=== PATIENT | female | born 1975 | race Caucasian/White ===

== ENCOUNTER 2016-11-19 10:56 | Observation (INO) | payer OTHER ==
[2016-11-19] MEDS ORDERED: ASPIRIN 81 MG TABLET, CHEWABLE PO ONE (11:26)
--- NOTE | 2016-11-19 11:26 | ER Document Report ---
ED Medical Screen (RME) - General Chief Complaint: Chest Tightness Stated Complaint: CHEST PAIN/BP PROBLEMS Time Seen by Provider: 11/19/16 11:18 Notes: Patient is a 41-year-old female, past medical history migraines (on propranolol) , hypertension, hyperlipidemia, depression, with feeling like her heart is racing since 8 am today. She has not missed any of her propranolol doses. She takes OCPs. She is also feeling a substernal chest tightness that started around the same time. Denies leg swelling, hemoptysis, shortness of breath, back pain, recent long travel or smoking. PE: Tachycardic, no respiratory distress, no leg swelling I have greeted and performed a rapid initial assessment of this patient. A comprehensive ED assessment and evaluation of the patient, analysis of test results and completion of the medical decision making process will be conducted by additional ED providers. TRAVEL OUTSIDE OF THE [place] IN LAST 30 DAYS: No - Related Data Allergies/Adverse Reactions: No Known Allergies Allergy (Verified 11/19/16 11:12) Past Medical History Neurological Medical History: Reports: Hx Migraine Renal/ Medical History: Denies: Hx Peritoneal Dialysis Physical Exam - Vital signs Vitals: Temp Pulse Resp BP Pulse Ox 97.7 F 134 H 20 149/97 H 100 11/19/16 11:12 11/19/16 11:12 11/19/16 11:12 11/19/16 11:12 11/19/16 11:12 Course - Vital Signs Vital signs: Temp Pulse Resp BP Pulse Ox 97.7 F 134 H 20 149/97 H 100 11/19/16 11:12 11/19/16 11:12 11/19/16 11:12 11/19/16 11:12 11/19/16 11:12
[2016-11-19 11:56] LABS: ABSOLUTE BASOPHILS # (AUTO) 0.1 10^3/uL (0.0-0.2); ABSOLUTE LYMPHOCYTES (AUTO) 2.2 10^3/uL (0.5-4.7); ABSOLUTE MONOCYTES (AUTO) 0.7 10^3/uL (0.1-1.4); ABSOLUTE NEUT (AUTO) 7.3 10^3/uL (1.7-8.2); BASOPHILS % (AUTO) 0.8 % (0-2); EOSINOPHILS % (AUTO) 0.5 % (0-6); HEMATOCRIT 44.5 % (36.0-47.0); HEMOGLOBIN 14.8 g/dL (12.0-15.5); HGB HCT DIFFERENCE -0.1; LYMPHOCYTES % (AUTO) 21.1 % (13-45); MEAN CORPUSCULAR HGB CONC 33.2 g/dL (32.0-36.0); MEAN CORPUSCULAR VOLUME 90 fl (80-97); MONOCYTES % (AUTO) 6.7 % (3-13); RED BLOOD COUNT 4.93 10^6/uL (3.72-5.28); SEGMENTED NEUTROPHILS % (AUTO) 70.9 % (42-78); WHITE BLOOD COUNT 10.3 10^3/uL (4.0-10.5)
[2016-11-19] MEDS: NITROGLYCERIN 0.4 MG/TAB 25 TAB/BOTTLE SL PRN ×2 (12:09→12:16)
[2016-11-19 12:16] LABS: ALANINE AMINOTRANSFERASE 32 U/L (9-52); ALBUMIN 4.3 g/dL (3.5-5.0); ALKALINE PHOSPHATASE 66 U/L (38-126); ANION GAP 13 (5-19); ASPARTATE AMINO TRANSFERASE 18 U/L (14-36); BILIRUBIN,DIRECT 0.2 mg/dL (0.0-0.4); BILIRUBIN,TOTAL 0.8 mg/dL (0.2-1.3); BLOOD UREA NITROGEN 17 mg/dL (7-20); CALCIUM 10.2 mg/dL (8.4-10.2); CARBON DIOXIDE 25 mmol/L (22-30); CHLORIDE 101 mmol/L (98-107); CREATINE KINASE 102 U/L (30-135); CREATININE RESULT 0.88 mg/dL (0.52-1.25); GLUCOSE 88 mg/dL (75-110); POTASSIUM 4.1 mmol/L (3.6-5.0); SODIUM 138.9 mmol/L (137-145); TOTAL PROTEIN 7.6 g/dL (6.3-8.2)
[2016-11-19 12:31] LABS: TROPONIN I < 0.012 ng/mL
--- NOTE | 2016-11-19 12:49 | EKG REPORT ---
SEVERITY:- ABNORMAL ECG - SINUS TACHYCARDIA PROBABLE INFERIOR INFARCT, AGE INDETERMINATE CONSIDER ANTEROSEPTAL INFARCT : Confirmed by: Dontrell Mauricio MD 19-Nov-2016 12:48:10
--- NOTE | 2016-11-19 12:58 | ER Document Report ---
ED General - General Chief Complaint: Chest Tightness Stated Complaint: CHEST PAIN/BP PROBLEMS Time Seen by Provider: 11/19/16 11:18 Mode of Arrival: Ambulatory Information source: Patient Notes: 41-year-old female presents with complaints of chest tightness that started around 9 AM this morning. She denies any fevers or chills admits shortness breath. Patient's mother had a history of pulmonary emboli she is on control herself. Patient is noted to be tachycardic. Patient to history of intermittent chest pain states she had one similar episode when she was taken off propanolol for her migraine headache and then began to have similar chest pain patient which is currently on no new medications TRAVEL OUTSIDE OF THE [place] IN LAST 30 DAYS: No - HPI Onset: Just prior to arrival Onset/Duration: Sudden Quality of pain: Pressure Severity: Mild Pain Level: 1 Associated symptoms: Chest pain Exacerbated by: Denies Relieved by: Denies Similar symptoms previously: Yes Recently seen / treated by doctor: No - Related Data Allergies/Adverse Reactions: No Known Allergies Allergy (Verified 11/19/16 11:12) Past Medical History - Social History Smoking Status: Never Smoker Cigarette use (# per day): No Chew tobacco use (# tins/day): No Smoking Education Provided: No Frequency of alcohol use: None Drug Abuse: None Family History: Reviewed & Not Pertinent Patient has suicidal ideation: No Patient has homicidal ideation: No Neurological Medical History: Reports: Hx Migraine Renal/ Medical History: Denies: Hx Peritoneal Dialysis Review of Systems - Review of Systems Notes: REVIEW OF SYSTEMS: CONSTITUTIONAL : Denies fever, chills, or sweats. Denies recent illness. EENT: Denies eye, ear, throat, or mouth pain or symptoms. Denies nasal or sinus congestion or discharge. Denies throat, tongue, or mouth swelling or difficulty swallowing. CARDIOVASCULAR: admits to chest pain RESPIRATORY: admits to sob GASTROINTESTINAL: Denies abdominal pain or distention. Denies nausea, vomiting , or diarrhea. Denies blood in vomitus, stools, or per rectum. Denies black, tarry stools. Denies constipation. GENITOURINARY: Denies difficulty urinating, painful urination, burning, frequency, blood in urine, or discharge. FEMALE GENITOURINARY: Denies vaginal bleeding, heavy or abnormal periods, irregular periods. Denies vaginal discharge or odor. MUSCULOSKELETAL: Denies back or neck pain or stiffness. Denies joint pain or swelling. SKIN: Denies rash, lesions or sores. HEMATOLOGIC : Denies easy bruising or bleeding. LYMPHATIC: Denies swollen, enlarged glands. NEUROLOGICAL: Denies confusion or altered mental status. Denies passing out or loss of consciousness. Denies dizziness or lightheadedness. Denies headache. Denies weakness or paralysis or loss of use of either side. Denies problems with gait or speech. Denies sensory loss, numbness, or tingling. Denies seizures. PSYCHIATRIC: Denies anxiety or stress. Denies depression, suicidal ideation, or homicidal ideation. ALL OTHER SYSTEMS REVIEWED AND NEGATIVE. PHYSICAL EXAMINATION: GENERAL: Well-appearing, well-nourished and in no acute distress. HEAD: Atraumatic, normocephalic. EYES: Pupils equal round and reactive to light, extraocular movements intact, conjunctiva are normal. ENT: Nares patent, oropharynx clear without exudates. Moist mucous membranes. NECK: Normal range of motion, supple without lymphadenopathy LUNGS: Breath sounds clear to auscultation bilaterally and equal. No wheezes rales or rhonchi. HEART: tachycardic ABDOMEN: Soft, nontender, nondistended abdomen. No guarding, no rebound. No masses appreciated. Female : deferred Musculoskeletal: Normal range of motion, no pitting or edema. No cyanosis. NEUROLOGICAL: Cranial nerves grossly intact. Normal speech, normal gait. Normal sensory, motor exams PSYCH: Normal mood, normal affect. SKIN: Warm, Dry, normal turgor, no rashes or lesions noted. Dictation was performed using [employer] voice recognition software Physical Exam - Vital signs Vitals: Temp Pulse Resp BP Pulse Ox 97.7 F 134 H 20 149/97 H 100 11/19/16 11:12 11/19/16 11:12 11/19/16 11:12 11/19/16 11:12 11/19/16 11:12 Course - Re-evaluation Re-evalutation: 11/19/16 14:49 CTA of chest was performed, no pulmonary emboli is noted. Patient will be admitted for ACS rule out given history of hypertension hyperlipidemia - Vital Signs Vital signs: Temp Pulse Resp BP Pulse Ox 97.7 F 134 H 16 149/97 H 100 11/19/16 11:12 11/19/16 11:12 11/19/16 12:26 11/19/16 11:12 11/19/16 11:12 - Laboratory Result Diagrams: 11/19/16 11:36 11/19/16 11:36 Laboratory results interpreted by me: 11/19/16 11/19/16 11:36 13:30 D-Dimer 0.70 H Urine Blood MODERATE H Ur Leukocyte Esterase LARGE H - Diagnostic Test Radiology reviewed: Image reviewed, Reports reviewed - EKG Interpretation by Me EKG shows normal: Sinus rhythm, [place], Intervals, QRS Complexes Discharge - Discharge Clinical Impression: Tachycardia Chest pain Qualifiers: Chest pain type: unspecified Qualified Code(s): R07.9 - Chest pain, unspecified Condition: Stable Disposition: ADMITTED OBSERVATION Admitting Provider: Hospitalist Unit Admitted: Telemetry
--- NOTE | 2016-11-19 13:24 | RADIOLOGY REPORT (SQ) ---
EXAM DESCRIPTION: CTA CHEST COMPLETED DATE/TIME: 11/19/2016 12:59 pm REASON FOR STUDY: chest pain ,tachycardia COMPARISON: None. TECHNIQUE: CT scan of the chest performed using helical scanning technique with dynamic intravenous contrast injection. Images reviewed with lung, soft tissue and bone windows. Reconstructed coronal and sagittal MPR images reviewed. Additional 3 dimensional post-processing performed to develop Maximal Intensity Projection images ([place] P). All images stored on PACS. All CT scanners at this facility use dose modulation, iterative reconstruction, and/or weight based d osing when appropriate to reduce radiation dose to as low as reasonably achievable (ALARA). [facility]: Dose Right [facility]: CareDose [facility]: Dose Right [facility]: Teradose 4D [facility]: KiteDesk CONTRAST TYPE AND DOSE: contrast/concentration: Isovue 370.00 mg/ml; Total Contrast Delivered: 72.0 ml; Total Saline Delivered: 100.0 ml RENAL FUNCTION: GFR > 60. RADIATION DOSE: Up-to-date CT equipment and radiation dose reduction techniques were employed. CTDIv ol: 14.8 - 16.5 mGy. DLP: 492 mGy-cm. . LIMITATIONS: None. FINDINGS: LUNGS AND PLEURA: No masses, infiltrates, pneumothorax. No pleural effusions, calcificati ons. AORTA AND GREAT VESSELS: No aneurysm or dissection. HEART: No pericardial effusion. PULMONARY ARTERIES: No emboli visualized in the main pulmonary arteries or the segmental branches. HILAR AND MEDIASTINAL STRUCTURES: No identified masses or abnormal nodes. HARDWARE: None in the chest. UPPER ABDOMEN: No significant findings. Limited exam. THYROID AND OTHER SOFT TISSUES: Subcentimeter nodule right thyroid. BONES: No acute or significant finding. 3D MIPS: Confirm above findings. OTHER: No other significant finding. IMPRESSION: No evidence of pulmonary embolus. TECHNICAL DOCUMENTATION: JOB ID: [id number] Quality ID # [id number]: Final reports with documentation of one or more dose reduction techniques (e.g., Au tomated exposure control, adjustment of the mA and/or kV according to patient size, use of iterative reconstruction technique) 2010 [employer]- All Rights Reserved
[2016-11-19 14:40] LABS: APPEARANCE,URINE SLIGHTLY-CLOUDY; BILIRUBIN,URINE NEGATIVE (NEGATIVE); GLUCOSE, URINE NEGATIVE (NEGATIVE); KETONES,URINE NEGATIVE (NEGATIVE); LEUKOCYTE ESTERASE,URINE LARGE (NEGATIVE); NITRITE,URINE NEGATIVE (NEGATIVE); PROTEIN,URINE NEGATIVE (NEGATIVE); URINE SPECIFIC GRAVITY 1.009; UROBILINOGEN,URINE NEGATIVE mg/dL (<2.0)
[2016-11-19] MEDS ORDERED: ENOXAPARIN SODIUM INJ 40 MG/0.4 ML DISP.SYRIN SUBCUT ONE (15:30)
[2016-11-19] MEDS: LANSOPRAZOLE 30 MG TAB.RAP.DR PO SCH (18:32)
[2016-11-19] MEDS ORDERED: FLUOXETINE HCL 20 MG/5 ML UDCUP PO ONE (19:30)
[2016-11-19] MEDS: PROPRANOLOL HCL 40 MG TABLET PO SCH (21:33)
[2016-11-19] MEDS ORDERED: PROPRANOLOL HCL 40 MG TABLET PO SCH (22:00)
[2016-11-20] MEDS: LANSOPRAZOLE 30 MG TAB.RAP.DR PO SCH (05:50)
[2016-11-20 06:17] LABS: CHOLESTEROL 172.05 mg/dL (0-200); Direct HDL 36 mg/dL (>40); TRIGLYCERIDES 162 mg/dL (<150)
[2016-11-20 06:28] LABS: DIRECT LDL 120 mg/dL (<100)
[2016-11-20 06:32] LABS: VLDL CHOLESTEROL 32.4 mg/dL (10-31)
[2016-11-20] MEDS ORDERED: LOSARTAN POTASSIUM 50 MG TABLET PO SCH (10:00)
[2016-11-20] MEDS ORDERED: DULOXETINE HCL 30 MG CAPSULE.DR PO SCH (10:00)
[2016-11-20] MEDS ORDERED: HYDROCHLOROTHIAZIDE 12.5 MG CAPSULE PO SCH (10:00)
[2016-11-20] MEDS ORDERED: LOSARTAN PO SCH (10:00)
[2016-11-20] MEDS ORDERED: ASPIRIN 81 MG TABLET, CHEWABLE PO SCH (10:00)
[2016-11-20] MEDS ORDERED: ENOXAPARIN SODIUM INJ 40 MG/0.4 ML DISP.SYRIN SUBCUT SCH (10:00)
[2016-11-20] MEDS ORDERED: HYDROCHLOROTHIAZIDE PO SCH (10:00)
[2016-11-20] MEDS ORDERED: ATORVASTATIN CALCIUM 20 MG TABLET PO SCH (10:00)
[2016-11-20] MEDS: PROPRANOLOL HCL 40 MG TABLET PO SCH (10:40)
[2016-11-20] MEDS ORDERED: METOPROLOL SUCCINATE 25 MG TAB.SR.24H PO ONE (11:30)
[2016-11-20 14:08] VITALS: BP 116/67
--- NOTE | 2016-11-20 14:20 | PDOC DISCHARGE SUMMARY ---
General - Admit/Disc Date/PCP Admission Date/Primary Care Provider: 11/19/16 14:32 GRISELDA UPTONFATUMA Discharge Date: 11/20/16 - Discharge Diagnosis (1) Chest pain Is this a current diagnosis for this admission?: YesSummary: Patient ruled out for acute coronary syndrome, most likely GI origin. She will follow up with cardiology for event recorder and possible stress test (2) Tachycardia Is this a current diagnosis for this admission?: Yes (3) Essential hypertension Is this a current diagnosis for this admission?: YesSummary: Continue current medications she is normotensive (4) Depression Is this a current diagnosis for this admission?: YesSummary: Continue home medications (5) Migraine Is this a current diagnosis for this admission?: Yes - Additional Information Resuscitation Status: Full Code Discharge Diet: Regular Discharge Activity: Activity As Tolerated, Balance Activity w/Rest Home Medications: Atorvastatin Calcium [Lipitor 20 mg Tablet] 20 mg PO DAILY 11/19/16 Duloxetine HCl 30 mg PO DAILY 11/19/16 Fluoxetine HCl [Prozac] 10 mg PO QPM 11/19/16 Levonorgestrel-Ethin Estradiol [Jolessa 0.15 mg-0.03 mg Tablet] 1 tab PO QPM 08/03 Losartan/Hydrochlorothiazide [Hyzaar 100-25 Tablet] 50 mg PO DAILY 11/19/16 Propranolol HCl [Inderal LA] 80 mg PO QPM 11/19/16 History of Present Illness Patient complains of: Palpitations and chest pain , at rest for several hours History of Present Illness: 41-year-old female presents with complaints of chest tightness that started around 9 AM this morning. She denies any fevers or chills admits shortness breath. Patient's mother had a history of pulmonary emboli she is on control herself. Patient is noted to be tachycardic. Patient to history of intermittent chest pain states she had one similar episode when she was taken off propanolol for her migraine headache and then began to have similar chest pain patient which is currently on no new medications Hospital Course Hospital Course: Patient was admitted to the hospitalist service on tele. CTA of the chest revealed no abnormalities. Serial troponins were done which were all less than 0.012. She had no further episodes of chest pain. She has remained pain free. She had mild sinus tachycardia but otherwise no arryhtmias. She can be discharged home today and follow up with cardiology for a 7 day event recorder, possible stress test if they feel indicated Physical Exam Vital Signs: Temp Pulse Resp BP Pulse Ox 98.1 F 90 17 116/67 98 11/20/16 13:58 11/20/16 13:58 11/20/16 13:58 11/20/16 13:58 11/20/16 13:58 Intake & Output 11/19/16 11/20/16 11/21/16 06:59 06:59 06:59 Intake Total 310 360 Balance 310 360 Weight 80 kg General appearance: PRESENT: no acute distress, well-developed, well-nourished Head exam: PRESENT: atraumatic, normocephalic Eye exam: PRESENT: conjunctiva pink, EOMI, PERRLA. ABSENT: scleral icterus Ear exam: PRESENT: normal external ear exam Mouth exam: PRESENT: moist, tongue midline Neck exam: ABSENT: carotid bruit, JVD, lymphadenopathy, thyromegaly Respiratory exam: PRESENT: clear to auscultation reagan. ABSENT: rales, rhonchi, wheezes Cardiovascular exam: PRESENT: RRR. ABSENT: diastolic murmur, rubs, systolic murmur Pulses: PRESENT: normal dorsalis pedis pul Vascular exam: PRESENT: normal capillary refill GI/Abdominal exam: PRESENT: normal bowel sounds, soft. ABSENT: distended, guarding, mass, organolmegaly, rebound, tenderness Rectal exam: PRESENT: deferred Extremities exam: PRESENT: full ROM. ABSENT: calf tenderness, clubbing, pedal edema Neurological exam: PRESENT: alert, awake, oriented to person, oriented to place , oriented to time, oriented to situation, CN II-XII grossly intact. ABSENT: motor sensory deficit Psychiatric exam: PRESENT: appropriate affect, normal mood. ABSENT: homicidal ideation, suicidal ideation Skin exam: PRESENT: dry, intact, warm. ABSENT: cyanosis, rash Results Laboratory Results: 11/20/16 05:55 Triglycerides 162 H Cholesterol 172.05 LDL Cholesterol Direct 120 H VLDL Cholesterol 32.4 H HDL Cholesterol 36 L 11/19/16 11/20/16 18:15 00:53 Troponin I < 0.012 < 0.012 Impressions: Chest/Abdomen CTA 11/19/16 12:32 IMPRESSION: No evidence of pulmonary embolus. Qualifiers PATEINT BEING DISCHARGED WITH ANY OF THE FOLLOWING DIAGNOSIS?: No Plan Discharge Plan: Home with family Time Spent: Less than 30 Minutes
[2016-11-20] MEDS ORDERED: (PENDING PHARMACY ID) (Propranolol Hcl [Inderal La] 80 MG) PO SCH (18:00)
[2016-11-20] MEDS ORDERED: FLUOXETINE HCL 20 MG/5 ML UDCUP PO SCH (18:00)
--- NOTE | 2016-11-20 20:31 | EKG REPORT ---
SEVERITY:- BORDERLINE ECG - SINUS RHYTHM BORDERLINE R WAVE PROGRESSION, ANTERIOR LEADS : Confirmed by: Dontrell Mauricio MD 20-Nov-2016 20:30:22
--- NOTE | 2016-11-26 10:39 | HISTORY AND PHYSICAL E ---
History and Physical NAME: MARV LEAL : 1975 AGE: 41Y ADMITTED: 11/19/2016 ROOM: 531 PRIMARY CARE PROVIDER: Anastasia Nava NP CHIEF COMPLAINT: Chest heaviness. HISTORY OF PRESENT ILLNESS: The patient is a 41-year-old female with a past medical history of migraine headaches. The patient presented to emergency department with a chief complaint of chest discomfort. According to the patient around noon she was working and developed a sensation that her heart was racing and chest heaviness. The patient apparently had an episode over a year ago with this. The patient was actually scheduled for an outpatient stress test; however, during the stress test prior to the patient being on the treadmill her heart rate went to 170. It was felt by the vp that this was due to the patient stopping her beta-ronnie, for which she takes for her migraines for the stress test. The patient resumed her medication and her heart rate improved; however, the patient never went through with the stress test because of this. The patient denies any increased stressors. The patient denies any dizziness, loss of consciousness, no fevers, chills, no cough or sputum production. Upon examination, the patient was mildly tachycardic with a heart rate of 105 and the patient was referred to the hospitalist for observation and management. PAST MEDICAL HISTORY: 1. Migraine headaches. 2. Hyperlipidemia. 3. Hypertension. PAST SURGICAL HISTORY: Negative. ALLERGIES: No known drug allergies. HOME MEDICATIONS: 1. Ropinirole 80 mg p.o. every hour of sleep. 2. Hyzaar 100/25 50 mg p.o. daily. 3. Jolessa 1 tablet p.o. q.p.m. 4. Prozac 10 mg p.o. q.p.m. 5. Cymbalta 30 mg p.o. daily. 6. Lipitor 20 mg p.o. daily. SOCIAL HISTORY: The patient currently resides at home. She is . Her surrogate decision maker is her spouse. The patient is employed full-time as an [employer]. She denies any tobacco use. No history of alcohol or illicit drug use. FAMILY MEDICAL HISTORY: Positive for coronary artery disease in her grandfather, hypertension in her parents. The patient's child is healthy. The patient has a sister with thyroid issues. DICTATING PHYSICIAN: KATHARINE BARBOZA NP [id number] PHY#: [id number] ID: [id number] JOB#: [id number] ACCT: [id number] cc:KATHARINE BARBOZA NP VIDHYA GARCIA > REVIEW OF SYSTEMS: CONSTITUTIONAL: The patient denies any fevers, chills, weakness. No loss of appetite. No dizziness. INTEGUMENTARY: The patient denies any diaphoresis, rash, bruising, itching. HEENT: Denies any vision changes, hearing loss, nasal drainage, sore throat, headache. CARDIOVASCULAR: Denies any edema. Positive for chest pain. Intermittent palpitations. RESPIRATORY: Denies any cough, sputum production, or hemoptysis. No shortness of breath. GASTROINTESTINAL: Denies any nausea, vomiting, diarrhea, abdominal pain, bloating, hematemesis, melena, constipation, melena, hematochezia, mid-epigastric pain. GENITOURINARY: Denies any hematuria, pyuria, or dysuria. MUSCULOSKELETAL: Denies any joint pains. NEUROLOGICAL: Denies any seizures, tremors, loss of consciousness. HEMATOLOGICAL: Denies any kp bleeding or easy bruising. ENDOCRINE: Denies any recent weight changes. PSYCHIATRIC: Denies suicidal or homicidal ideation. Denies any excessive stressors. Rest of review of the other organ systems is negative. PHYSICAL EXAMINATION: GENERAL: On examination the patient is a well-developed, well-nourished, 41-year-old female who is awake, alert and oriented to person, place, time, and situation. She is verbal, conversational, ambulatory, does not appear to be in any acute distress. VITAL SIGNS: As follows: Temperature is 97.7, pulse 105, respirations 20, blood pressure is 149/97, oxygen saturation 100% on room air. SKIN: Warm and dry. No rash. She is not diaphoretic. HEENT: Pupils equal, round, reactive to light and accommodation. Conjunctiva is pink. Sclera is nonicteric. No mouth lesions. Tongue is midline. Patient with good dentition. NECK: Supple. There is no JVD. No palpable lymphadenopathy or thyromegaly. CARDIOVASCULAR SYSTEM: Heart is regular. There is no murmur or rub. CHEST: Clear, symmetrical, unlabored. ABDOMEN: Soft, nontender, nondistended. Bowel sounds are present. No palpable organomegaly. BACK: No CVA tenderness or sacral edema. EXTREMITIES: No clubbing, cyanosis, edema, or peripheral signs of embolization. Pedal pulses 2+ noted bilaterally. Warm to the touch. PSYCHIATRIC: Appropriate affect. Pleasant mood. DIAGNOSTICS: Lab values are as follows: Hematology obtained on 11/19/2016; WBCs are 10.3, hemoglobin is 14.8, hematocrit is 44.5, platelet count is 430,000. Coagulation obtained on 11/19/2016: D-dimer is 0.70. Chemistry obtained on 11/19/2016: Sodium is 138, potassium 4.1, chloride is 101, CO2 25, BUN 17, creatinine is 0.88, glucose 88, calcium is 10.2, bilirubin is 0.8, AST 18, ALT is 32, alkaline phosphatase 66, CK 102, troponin is less than 0.012, BNP is 32, total protein 7.6, albumin 4.3, TSH is 3.48. Urinalysis obtained on 11/19/2016: Color yellow, appearance slightly cloudy, pH of 7.0, specific gravity is 1.009, protein negative, glucose negative, ketones negative, occult blood moderate, nitrite negative, bilirubin negative, urobilinogen is negative, leukocyte esterase is large, WBCs 9, RBCs 13, bacteria 3+, epithelial squamous cells 5, ascorbic acid is negative, hCG level is negative. A CTA of the chest obtained on 11/19/2016 reveals no evidence of pulmonary emboli. EKG obtained on 11/19/2016 reveals sinus tachycardia. IMPRESSION AND PLAN: 1. Heart palpitations and chest pain. Will observe the patient in continuous telemetry unit, obtain serial cardiac enzymes, repeat EKG in the a.m., as well as will obtain a Cardiolite stress test. Pending findings, management from there. The patient most likely will benefit from an outpatient monitor. 2. Hyperlipidemia. Will continue statin. 3. History of migraines. Will continue the patient's propranolol as I do not want to abruptly discontinue this medication at this time. 4. DVT prophylaxis. Will add subcutaneous Lovenox. DISPOSITION: The patient is a FULL CODE. Pending patient's symptomatology and diagnostic findings, will re-evaluate in the a.m. for discharge. The patient will be observed in continuous telemetry as the patient's expected length of stay will not surpass 2 midnights. Time spent on this admission including assessment, plan, physical examination, patient education, review of records is 35 minutes. DICTATING PHYSICIAN: KATHARINE BARBOZA NP [id number] PHY#: [id number] ID: [id number] JOB#: [id number] ACCT: [id number] MTD
== END 2016-11-20 13:40 | disposition home or self-care (01) ==
LOC: ER 10:56 → EH 14:32 → 5 17:53
PROVIDERS: ADMIT Family Medicine; ATTEND Family Medicine
DX: R07.89 Other chest pain (principal); R00.0 Tachycardia, unspecified; I10 Essential (primary) hypertension; F32.9 Major depressive disorder, single episode, unspecified; G43.909 Migraine, unspecified, not intractable, without status migrainosus; E78.5 Hyperlipidemia, unspecified; Z79.899 Other long term (current) drug therapy; Z79.3 Long term (current) use of hormonal contraceptives; Z86.711 Personal history of pulmonary embolism; Z82.49 Family history of ischemic heart disease and other diseases of the circulatory system
CPT/HCPCS: 93005 ×2; 99285; 36415 ×2; 82550; 84443; 85025; 81025; 80053; 81001; 84484 ×2; 85379; 80061; 83880; 71275; 93010 ×2; G0378 ×3; J1650; J3490 ×5

== ENCOUNTER → 2017-05-14 | Outpatient (CLI) | payer OTHER ==
--- NOTE | 2017-05-14 12:01 | WOMENS IMAGING REPORT ---
EXAM DESCRIPTION: BILAT SCREENING MAMMO W/CAD COMPLETED DATE/TIME: 05/14/2017 11:13 am REASON FOR STUDY: ROUTINE SCREENING; Z12.31 Z12.31 ENCNTR SCREEN MAMMOGRAM FOR MALIGNANT NEOPLASM O F TREV COMPARISON: 03/16/2016 and 03/09/2015. TECHNIQUE: Standard craniocaudal and mediolateral oblique views of each breast recorded using digita l acquisition. LIMITATIONS: None. FINDINGS: No masses, calcifications or architectural distortion. No areas of suspicion. Read with the assistance of CAD. .[facility] - R2 Cenova Version 1.3 .[facility] - R2 Cenova Version 1.3 .[facility] - R2 Cenova Version 2.4 .[facility] [place] - R2 Cenova Version 2.4 .[facility] - R2 Data Entry Version 9.2 IMPRESSION: NORMAL MAMMOGRAM. BIRADS 1. BREAST DENSITY: b. There are scattered areas of fibroglandular density. BIRAD: 1 NEGATIVE RECOMMENDATION: ROUTINE SCREENING COMMENT: The patient has been notified of the results by letter per MQSA requirements. Additional no tification policies are in place for contacting patient with suspicious or incomplete findings. Quality ID #[id number]: The [employer] recommends an annual screening mammogram for women aged 40 years or over. This facility utilizes a reminder system to ensure that all patients receive reminder letters, and/or direct phone calls for appointments. This includes reminders for routine scr eening mammograms, diagnostic mammograms, or other Breast Imaging Interventions when appropriate. Th is patient will be placed in the appropriate reminder system. The [employer] (ACR) has developed recommendations for screening MRI of the breast s in certain patient populations, to be used in conjunction with mammography. Breast MRI surveillanc e may be appropriate for women with more than 20% lifetime risk of developing breast cancer as deter mined by genetic testing, significant family history of the disease, or history of mantle radiation f or Hodgkins Disease. ACR Practice Guidelines 2008. TECHNICAL DOCUMENTATION: FINDING NUMBER: (1) ASSESSMENT: (1) JOB ID: [id number] [employer]- All Rights Reserved
== END ==
LOC: WI 11:01
PROVIDERS: ATTEND Nurse Practitioner
DX: Z12.31 Encounter for screening mammogram for malignant neoplasm of breast (principal)
CPT/HCPCS: 77067; G0202

== ENCOUNTER → 2018-06-16 | Outpatient (CLI) | payer OTHER ==
--- NOTE | 2018-06-16 13:19 | WOMENS IMAGING REPORT ---
EXAM DESCRIPTION: BILAT SCREENING MAMMO W/CAD COMPLETED DATE/TIME: 06/16/2018 11:17 am REASON FOR STUDY: ROUTINE BILATERAL SCREENING,Z12.31 Z12.31 ENCNTR SCREEN MAMMOGRAM FOR MALIGNANT N EOPLASM OF TREV COMPARISON: None. TECHNIQUE: Standard craniocaudal and mediolateral oblique views of each breast recorded using Veeqoa l acquisition. LIMITATIONS: None. FINDINGS: No masses, calcifications or architectural distortion. No areas of suspicion. Read with the assistance of CAD. .[facility] - R2 Cenova Version 1.3 .[facility] Imaging - R2 Cenova Version 2.1 .[facility] - R2 Cenova Version 2.4 .[facility] [place] - R2 Cenova Version 2.4 .[facility] - R2 Extermination Supervisor Version 9.2 IMPRESSION: NORMAL MAMMOGRAM. BIRADS 1. BREAST DENSITY: b. There are scattered areas of fibroglandular density. BIRAD: 1 NEGATIVE RECOMMENDATION: ROUTINE SCREENING COMMENT: The patient has been notified of the results by letter per [place] requirements. Additional no tification policies are in place for contacting patient with suspicious or incomplete findings. Quality ID #[id number]: The [employer] recommends an annual screening mammogram for women aged 40 years or over. This facility utilizes a reminder system to ensure that all patients receive reminder letters, and/or direct phone calls for appointments. This includes reminders for routine scr eening mammograms, diagnostic mammograms, or other Breast Imaging Interventions when appropriate. Th is patient will be placed in the appropriate reminder system. The [employer] (A[employer]) has developed recommendations for screening MRI of the breast s in certain patient populations, to be used in conjunction with mammography. Breast MRI surveillanc e may be appropriate for women with more than 20% lifetime risk of developing breast cancer as deter mined by genetic testing, significant family history of the disease, or history of mantle radiation f or Hodgkins Disease. ACR Practice Guidelines 2008. TECHNICAL DOCUMENTATION: FINDING NUMBER: (1) ASSESSMENT: (1) JOB ID: [id number] [employer]- All Rights Reserved Reading location - IP/workstation name: [email or web address]
== END ==
LOC: WI 10:52
PROVIDERS: ATTEND Nurse Practitioner
DX: Z12.31 Encounter for screening mammogram for malignant neoplasm of breast (principal)
CPT/HCPCS: 77067

== ENCOUNTER → 2020-02-17 | Outpatient (CLI) | payer OTHER ==
--- NOTE | 2020-02-17 09:59 | WOMENS IMAGING REPORT ---
EXAM DESCRIPTION: 3D SCREENING MAMMO BILAT IMAGES COMPLETED DATE/TIME: 02/17/2020 9:34 am REASON FOR STUDY: Z12.31 ENCNTR SCREEN MAMMOGRAM FOR MALIGNANT NEOPLASM OF BREAST Z12.31 ENCNTR SCR EEN MAMMOGRAM FOR MALIGNANT NEOPLASM OF TREV COMPARISON: Priors dating back to 2014. EXAM PARAMETERS: Views: Standard craniocaudal and mediolateral oblique views of each breast recorded using digital acquisition and breast tomosynthesis. Read with the assistance of CAD. .[facility] - R2 Home Specialist Version 9.2 LIMITATIONS: None. FINDINGS: No suspicious masses, suspicious calcifications or architectural distortion. No areas of c oncern. IMPRESSION: NEGATIVE MAMMOGRAM. BIRADS 1. BREAST DENSITY: b. There are scattered areas of fibroglandular density. BIRAD: ASSESSMENT: 1 NEGATIVE RECOMMENDATION: ROUTINE SCREENING COMMENT: The patient has been notified of the results by letter per MQSA requirements. Additional no tification policies are in place for contacting patient with suspicious or incomplete findings. Quality ID #[id number]: The [employer] recommends an annual screening mammogram for women aged 40 years or over. This facility utilizes a reminder system to ensure that all patients receive reminder letters, and/or direct phone calls for appointments. This includes reminders for routine scr eening mammograms, diagnostic mammograms, or other Breast Imaging Interventions when appropriate. Th is patient will be placed in the appropriate reminder system. TECHNICAL DOCUMENTATION: FINDING NUMBER: (1) ASSESSMENT: (1) JOB ID: [id number] [employer]- All Rights Reserved Reading location - IP/workstation name: [email or web address]
== END ==
LOC: WI 09:12
PROVIDERS: ATTEND Nurse Practitioner
DX: Z12.31 Encounter for screening mammogram for malignant neoplasm of breast (principal)
CPT/HCPCS: 77063; 77067